=== PATIENT | male | born 2005 | race Two or more races ===

== ENCOUNTER 2025-01-31 18:31 | Observation (INO) ==
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
--- NOTE | 2025-01-31 19:33 | XRay Report ---
EXAM: Portable AP chest radiograph TECHNIQUE: AP portable radiograph of the chest was obtained. INDICATION: Trauma Comparison: Chest radiograph August 07, 2024 FINDINGS: LINES and TUBES: None CARDIOVASCULAR: Cardiac silhouette is normal in size. LUNGS/PLEURA: No focal consolidation identified. No significant pleural fluid. No discernible pneumothorax. OSSEOUS/OTHER: No displaced acute osseous process identified. IMPRESSION: No radiographic evidence of acute cardiopulmonary process. Electronically signed by Jan Esparza 01-31-2025 7:32 PM
[2025-01-31] MEDS: OPTIRAY 320 100ml IV ONE (19:51)
[2025-01-31 19:55] LABS: Hematocrit (blood only) 42.2 % (42.0-52.0); Hemoglobin 14.2 g/dl (14.0-18.0); Immature Granulocytes # (auto) 0.07 K/uL (0.01-0.20); Immature Granulocytes % (auto) 0.6 %; Mean Corpuscular Hemoglobin 29.5 pg (25.0-34.0); Mean Corpuscular Volume 87.6 fL (80.0-100.0); Platelet Count 282 K/uL (130-400); RDW Standard Deviation 41.5 fL (36.4-46.3); Red Blood Count 4.82 M/uL (4.70-6.10); White Blood Count 12.11 K/ul (4.8-10.8)
[2025-01-31] MEDS: ACETAMINOPHEN 1,000 MG/100 ML VIAL IV STA (20:04)
[2025-01-31 20:12] LABS: Alanine Aminotransferase 15.0 U/L (7-52); Albumin Globulin Ratio 1.7 (0.9-2); Alkaline Phosphatase 39.0 U/L (34-104); Anion Gap 9.0 (3-11); Bilirubin,Total 0.4 mg/dl (0.2-1.0); Blood Urea Nitrogen 10.0 mg/dl (6-23); Calcium 9.2 mg/dl (8.6-10.3); Carbon Dioxide 26.0 mmol/L (21-32); Chloride 104.0 mmol/L (98-107); Creatinine Clr Calc Pharmacy 108.9 ml/min; Globulin 2.6 gm/dl (2.5-4.0); Glucose 140.0 mg/dl (70-99(Fasting)); Lipase 52.0 U/L (11-82); Potassium 3.2 mmol/L (3.5-5.1); Sodium 139.0 mmol/L (136-145); Total Protein 7.0 gm/dl (6.0-8.3)
[2025-01-31] MEDS: DIPHTHER/TETAN/PERTUS Vaccine (Tdap, Adol/Adult) 0.5mL IM ONE (20:14)
[2025-01-31] MEDS: LIDOCAINE/EPINEPH/TETRACAINE 1 EA SYR EXT STA (20:16)
[2025-01-31 20:23] LABS: INR 1.1 (0.9-1.1); Partial Thromboplastin Time 25 Seconds (21-31); Prothrombin Time 11.9 Seconds (9.0-12.0)
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
--- NOTE | 2025-01-31 20:54 | CT Scan Report ---
Exam(s): CT CHEST With Contrast IV Amt: 93ml opti 320 EXAM: CT Chest With Intravenous Contrast CLINICAL HISTORY: Trauma. TECHNIQUE: Axial computed tomography images of the chest with intravenous contrast. CTDI is 10.8 mGy and DLP is 348.85 mGy-cm. Automated exposure control was utilized for the study. A dose lowering technique was utilized adhering to the principles of ALARA. CONTRAST: Patient received 93ml opti 320 of IV contrast COMPARISON: No relevant prior studies available. FINDINGS: Lungs: No definite pulmonary contusive injury or focal consolidation identified. Pleural space: Unremarkable. No significant effusion. No pneumothorax. Heart: The cardiac chambers are normal in size. No pericardial effusion. No significant coronary artery calcifications. Mediastinum: No mediastinal traumatic injury. Bones/joints: The osseous structures of the thorax are intact without acute osseous traumatic injury. Soft tissues: No significant overlying acute traumatic soft tissue abnormality. Vasculature: The thoracic aorta is normal in caliber without evidence for acute periaortic traumatic injury. No dissection or aneurysm. Lymph nodes: Unremarkable. No enlarged lymph nodes. IMPRESSION: No significant acute traumatic injury identified involving the chest/thorax. Electronically signed by: Toby Leone MD 01/31/25 20:53 PM
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
[2025-01-31 23:26] LABS: Magnesium 1.7 mg/dl (1.7-2.4)
[2025-01-31 23:57] LABS: Appearance Urine Clear (Clear); Glucose Urine UA Negative (Negative)
[2025-02-01] MEDS ORDERED: ACETAMINOPHEN 325 MG TAB PO PRN (00:15)
[2025-02-01] MEDS: POTASSIUM CHLORIDE CRTAB 20 MEQ TABCR PO STA ×2 (00:26→10:29)
[2025-02-01 06:30] LABS: Hematocrit (blood only) 42.0 % (42.0-52.0); Hemoglobin 13.8 g/dl (14.0-18.0); Immature Granulocytes # (auto) 0.01 K/uL (0.01-0.20); Immature Granulocytes % (auto) 0.1 %; Mean Corpuscular Hemoglobin 29.2 pg (25.0-34.0); Mean Corpuscular Volume 88.8 fL (80.0-100.0); Platelet Count 249 K/uL (130-400); RDW Standard Deviation 41.1 fL (36.4-46.3); Red Blood Count 4.73 M/uL (4.70-6.10); White Blood Count 7.87 K/ul (4.8-10.8)
[2025-02-01 07:03] LABS: Anion Gap 4.0 (3-11); Blood Urea Nitrogen 8.0 mg/dl (6-23); Calcium 9.4 mg/dl (8.6-10.3); Carbon Dioxide 29.0 mmol/L (21-32); Chloride 108.0 mmol/L (98-107); Creatinine Clr Calc Pharmacy 108.4 ml/min; Glucose 103.0 mg/dl (70-99(Fasting)); Magnesium 2.0 mg/dl (1.7-2.4); Potassium 4.4 mmol/L (3.5-5.1); Sodium 141.0 mmol/L (136-145)
[2025-02-01 08:38] LABS: Thyroid Stimulating Hormone 2.392 uIu/ml (0.300-4.500)
--- NOTE | 2025-02-01 09:41 | XCELERA ---
[id number]
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
--- NOTE | 2025-02-01 10:46 | Communication Note ---
Date of Service: February 01, 2025 Tertiary Survey: [facility] Drug and Alcohol Screen: 0 points, negative Objective: All labs and imaging reports reviewed. Physical Exam: General: - Alert: Yes - Oriented: Yes - GCS 15: Yes HEENT: - RIGHT lateral eyebrow with laceration, [address] Well approximated. No ongoing bleeding. Slight abrasion lateral to this, no crepitus, swelling or pain. - No numbness/tingling - PERLAA. Normal Visual Acuity. No visual field cuts. No nystagmus. No contact lenses. Normal hearing. No relative afferent pupillary defect. No facial asymmetry. Normal palatal elevation, uvula midline. Midline tongue protrusion. Shoulder shrug with 5/5 strength bilaterally. - Mucous membranes moist. Neck: - Midline Tenderness: No - Cleared C-Spine: Yes Thorax: - Pain/Tenderness: L 12th rib alone the mid clavicular line with minimal TTP. No crepitus. No contusion. - Lacerations/Abrasions: None - Swelling/Ecchymosis: None - Air/Bony Crepitus: None Cardiopulmonary: - Regular Rate and Rhythm. No murmurs, rubs or gallops. - Breath sounds CTAB. No wheezes, rales, or rhonchi. - Symmetrical Chest Rise Abdomen - Pain/Tenderness: LLQ with 2cm linear contusion, no hematoma. Minimal TTP. Remaining abdomen NT. - Lacerations/Abrasions: None - No abdominal distension - Abdominal rigidity/guarding: None - Bowel Sounds: Present, normal - Pelvis stable Back/Spine - Lacerations/Abrasions: None - Swelling/Ecchymosis: None - Pain/Tenderness: None - Step-offs: None Extremities: - RUE: No deformity. No lacerations/abrasions. No swelling/ecchymosis. No pain/tenderness. Full active and passive range of motion. Jumpbasting Machine Operator strength, elbow flexion/extension, shoulder flexion/extension/abduction/adduction/external rotation/internal rotation intact with 5/5 strength. Sensation intact to soft touch without deficit. Radial pulse intact, cap refill in the thumb <2 seconds. - RLE: No deformity. RIGHT LATERAL HIP with overlying ~5cm diameter round abrasion. No bleeding. RIGHT LATERAL MALLEOLUS with overlying abrasion. No bony pain/crepitus/deformity. . No swelling/ecchymosis. No pain/tenderness. Full active and passive range of motion. Jumpbasting Machine Operator strength, elbow flexion/extension, shoulder flexion/extension/abduction/adduction/external rotation/internal rotation intact with 5/5 strength. Sensation intact to soft touch without deficit. Radial pulse intact, cap refill in the thumb <2 seconds. - LLE: No deformity. LEFT CALF with 2x linear ~3cm long superficial abrasions. No deep laceration. No bleeding. No swelling/ecchymosis. No pain/tenderness. Full active and passive range of motion. Hip flexion/extension, knee flexion/extension, ankle dorsiflexion/plantarflexion with 5/5 strength. Sensation intact to soft touch without deficit. PT pulse intact to palpation, cap refill in the hallux <2 seconds. - RLE: No deformity. No lacerations/abrasions. No swelling/ecchymosis. No pain/tenderness. Full active and passive range of motion. Hip flexion/extension, knee flexion/extension, ankle dorsiflexion/plantarflexion with 5/5 strength. Sensation intact to soft touch without deficit. PT pulse intact to palpation, cap refill in the hallux <2 seconds. Mental status Adequate for Full Exam: Yes C-Spine Cleared (Radiologically AND Clinically): Yes Patient ambulating independently. VSS. BP 119/72, pulse 63. Resp 18. 97% on RA. No new consults indicated at time of exam. Patient was seen by cardiology (consulted at time of admit) for ?pericarditis on EKG. No clinical findings c/w this. On review suspected early repolarization variant. trops negative.
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
--- NOTE | 2025-02-01 12:03 | Electrocardiogram Report ---
Test Reason : Blood Pressure : */* mmHG Vent. Rate : 70 BPM Atrial Rate : 70 BPM P-R Int : 160 ms QRS Dur : 86 ms QT Int : 372 ms P-R-T Axes : -81 67 45 degrees QTcB Int : 401 ms Unusual P axis, possible ectopic atrial rhythm ST elevation, consider early repolarization, pericarditis, or injury Abnormal ECG When compared with ECG of 31-Jan-2025 19:19, (unconfirmed) No significant change was found Confirmed by Sameer Craig ([id number]) on 02/01/2025 12:03:00 PM Referred By: REFERRED SELF Confirmed By: Sameer Craig
--- NOTE | 2025-02-01 12:05 | Electrocardiogram Report ---
Test Reason : Blood Pressure : */* mmHG Vent. Rate : 69 BPM Atrial Rate : 69 BPM P-R Int : 158 ms QRS Dur : 84 ms QT Int : 382 ms P-R-T Axes : -86 70 48 degrees QTcB Int : 409 ms Unusual P axis, possible ectopic atrial rhythm ST elevation, consider early repolarization, pericarditis, or injury Abnormal ECG Confirmed by Sameer Craig ([id number]) on 02/01/2025 12:04:39 PM Referred By: REFERRED SELF Confirmed By: Sameer Craig
--- NOTE | 2025-02-04 16:25 | Electrocardiogram Report ---
Test Reason : Blood Pressure : */* mmHG Vent. Rate : 57 BPM Atrial Rate : 57 BPM P-R Int : 160 ms QRS Dur : 84 ms QT Int : 392 ms P-R-T Axes : 64 47 40 degrees QTcB Int : [address] elevation, consider early repolarization, pericarditis, or injury Abnormal ECG When compared with ECG of 31-Jan-2025 19:28, Sinus rhythm has replaced Ectopic atrial rhythm Confirmed by Sameer Craig ([id number]) on 02/04/2025 4:25:19 PM Referred By: REFERRED SELF Confirmed By: Sameer Craig
== END 2025-02-01 12:23 | disposition home or self-care (01) ==
LOC: ED 18:31 → 2S 18:31 → SUATTDRO 22:58 → 2S 02-01 00:29